=== PATIENT | female | born 1965 | race Caucasian/White ===

== ENCOUNTER 2021-08-27 22:02 | Emergency (ER) | payer BC ==
[~2021-08-27] VITALS: Ht 172.7 cm; Wt 90.7 kg
[2021-08-27 22:15] VITALS: BP 141/93
--- NOTE | 2021-08-27 22:19 | NUR ---
SENIOR ARCHITECT/DESIGN MANAGER AT BEDSIDE FOR WOUND CLEANING
== END 2021-08-27 22:47 | disposition home or self-care (01) ==
LOC: ER 22:07
DX: S61.012A Laceration without foreign body of left thumb without damage to nail, initial encounter (principal); W26.8XXA Contact with other sharp object(s), not elsewhere classified, initial encounter; Y93.89 Activity, other specified; Y92.89 Other specified places as the place of occurrence of the external cause; Y99.8 Other external cause status